=== PATIENT | female | born 1930 | race Caucasian/White ===

== ENCOUNTER → 2016-07-03 | Outpatient (CLI) | payer OTHER, MEDICARE ==
--- NOTE | 2016-07-03 11:57 | US ---
Ultrasound left axilla History: Palpable lump left axilla. Findings: Ultrasound left axilla over area palpable lump confirms a benign-appearing lymph node measu ring 18 x 11 x 19 mm with a thin benign-appearing cortex. No additional mass or significant lymphaden opathy is seen. Impression: Benign lymph node left axilla. BI-RADS 2 Routine annual mammographic followup is recommended one year since the most recent complete mammograp hic study (January,). The results of this study were reviewed with the patient.
== END ==
LOC: FIMAGING 11:05
PROVIDERS: ATTEND Internal Medicine Hematology & Oncology
DX: R22.9 Localized swelling, mass and lump, unspecified (principal); C91.10 Chronic lymphocytic leukemia of B-cell type not having achieved remission

== ENCOUNTER → 2017-02-04 | Outpatient (CLI) | payer OTHER, MEDICARE | LOC: FIMAGING 13:04 | PROVIDERS: ATTEND Internal Medicine Hematology & Oncology | DX: Z12.31 Encounter for screening mammogram for malignant neoplasm of breast (principal) | CPT/HCPCS: G0202 ==

== ENCOUNTER → 2018-03-08 | Outpatient (CLI) | payer OTHER, MEDICARE | LOC: FIMAGING 12:16 | PROVIDERS: ATTEND Internal Medicine Hematology & Oncology | DX: Z12.31 Encounter for screening mammogram for malignant neoplasm of breast (principal) ==